=== PATIENT | female | born 1950 | race Caucasian/White ===

== ENCOUNTER → 2017-02-15 | Outpatient (CLI) | payer MEDICARE ==
--- NOTE | 2017-02-15 17:01 | BD ---
EXAMINATION TYPE: MG DEXA axial skeleton. DATE OF EXAM: 02/15/2017 1:20 PM COMPARISON: 02.24.2015 CLINICAL HISTORY: 66-year-old female Z03.89 OBS FOR METS, N95.1 POST MENOPAUSAL, C50.21 CANCER Height: 63 Weight: 144 FRAX RISK QUESTIONS: Alcohol (3 or more units per day): NO Family History (Parent hip fracture): YES Glucocorticoids (More than 3mos): NO (Ex: prednisone, prednisolone, methylprednisolone, dexamethasone, and hydrocortisone). History of Fracture in Adulthood: YES Secondary Osteoporosis: NO 1. Type 1 Diabetes: NO 2. Hyperthyroidism: NO 3. Menopause before 45: YES 4. Malnutrition: NO 5. Chronic liver disease: NO Rheumatoid Arthritis: NO Current Tobacco Use: NO RISK FACTORS HISTORY OF: Other Fractures since Age 48: ELBOW When: > 48 YRS OLD Family History of Osteoporosis: YES, MOTHER, GRANDMOTHER WITH BROKEN HIP Smoke tobacco: NO Drink Alcohol: SOCIAL Active: YES Diet low in dairy products/other sources of calcium: NO Postmenopausal woman: AT 40 YRS OLD Adrenal Insufficiency: NO MEDICATIONS: Additional Medications: HX OF RADIATION, ARIMIDEX, CALCIUM AND VIT D, LEXAPRO, Additional History: HX OF BREAST CANCER, LUMPECTOMY...2013 EXAM MEASUREMENTS: Bone mineral densitometry was performed using the [employer] System. Bone mineral density as measured about the Lumbar spine is: ----- L1-L4(G/cm2): 1.333 T Score Values are as follows: ----- L1: 1.2 ----- L2: 0.7 ----- L3: 2.0 ----- L4: 0.9 ----- L1-L4: 1.3 Bone mineral density has: Decreased -2.0% since study of: 02.24.2015 Bone mineral density about the R hip (g/cm2): 0.997 Bone mineral density about the L hip (g/cm2): 0.976 T Score values are as follows: -----R Neck: -1.1 -----L Neck: -1.0 -----R Total: -0.1 -----L Total: -0.2 Bone mineral density has: Decreased -4.3% since study of: 02.24.2015 FRAX %'s 23.3% CHANCE OF A MAJOR OSTEOPOROTIC FX AND A 2.6% CHANCE OF A HIP FX.....PROBABILITY OF FX IN 10 YRS TIME IMPRESSION: Osteopenia as indicated by T score values within the left hip. There is slightly increased risk of fracture and the patient may be considered for treatment. Re-Screen 2-5 years. NOTE: T-SCORE=SD OF THE YOUNG ADULT MEAN.
== END | disposition home or self-care (01) ==
LOC: RADBDWWP 12:48
PROVIDERS: ATTEND Internal Medicine Hematology & Oncology
DX: M85.80 Other specified disorders of bone density and structure, unspecified site (principal); C50.211 Malignant neoplasm of upper-inner quadrant of right female breast; N95.1 Menopausal and female climacteric states; Z79.890 Hormone replacement therapy
CPT/HCPCS: 77080

== ENCOUNTER → 2017-05-15 | Outpatient (CLI) | payer MEDICARE ==
--- NOTE | 2017-05-16 07:09 | MM ---
Reason for exam: additional evaluation requested from prior study. Last mammogram was performed 1 year ago. History: Patient is postmenopausal, has history of breast cancer at age 64, and is nulliparous. Radiation therapy of the right breast, 2014. Malignant MG pre op needle loc RT of the right breast, September 06, 2014. Malignant US biopsy breast VAD RT of the right breast, August 13, 2014. Took estrogen for 23 years. Took progesterone for 23 years. Taking antineoplastic for 1 year. Physical Findings: Nurse Summary: 1 x 1.5cm in the right breast at 1 o'clock (nurse ts). MG 3D Diag Mammo W/Cad TANA Bilateral CC and MLO view(s) were taken. Prior study comparison: May 14, 2016, bilateral MG 3d diag mammo w/cad TANA. November 14, 2015, right breast MG 3d diag mammo w/cad RT. The breast tissue is heterogeneously dense. This may lower the sensitivity of mammography. No suspicious abnormality. Post therapy changes medial right breast. These results were verbally communicated with the patient and result sheet given to the patient on 05/15/17. ASSESSMENT: Benign, BI-RAD 2 RECOMMENDATION: Follow-up diagnostic mammogram of both breasts in 1 year.
== END | disposition home or self-care (01) ==
LOC: RADMAMWWP 13:10
PROVIDERS: ATTEND Radiology Diagnostic Radiology
DX: C50.911 Malignant neoplasm of unspecified site of right female breast (principal)
CPT/HCPCS: G0204; G0279

== ENCOUNTER → 2017-05-28 | Outpatient (CLI) | payer MEDICARE ==
--- NOTE | 2017-05-29 08:05 | WWHP ---
[facility] - HISTORY AND PHYSICAL DATE OF SERVICE: 05/28/2017 CHIEF COMPLAINT: Patient is here for her routine gynecologic exam. HPI: This is a 67-year-old, G2, P0-0-2-0 with an LMP of 1989. The patient is without gynecologic complaints. PAST MEDICAL HISTORY: Right breast cancer in 2013, status post lumpectomy and radiation therapy. Also history of anxiety and depression and osteopenia. MEDICATIONS: 1. Prolia injections every 6 months. 2. Arimidex 1 mg daily. 3. Lexapro 10 mg daily. 4. Naproxen sodium p.r.n. for back pain. ALLERGIES: To CLINDAMYCIN which cause colitis. PAST SURGICAL HISTORY: Ectopic surgery x2, Colonoscopy 2002 and 2015, right breast lumpectomy 2013, repair of deviated septum 2009. 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 SOCIAL HISTORY: She quit smoking at age 25 and has about 1 alcoholic drink per week. She denies drug use. She has been since 1973 and her is a recovering alcoholic. 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 FAMILY HISTORY: Unchanged from the 2015 H&P. REVIEW OF SYSTEMS: Weight has been stable. She denies respiratory, cardiac or GI problems. She denies maltreatment or falling. : She denies any significant problems with urinary leakage but occasionally will have some urinary urgency where she has to get to the bathroom right away. PHYSICAL EXAM: Blood pressure 124/79, height 5 feet 4-1/2 inches, weight 147 pounds, temperature 98.1, pulse 71. This is a well-developed, well-nourished white female, who is alert and oriented x3. In no acute distress. HEENT is within normal limits. NECK: Supple without mass or thyromegaly. CHEST AND LUNGS: Clear to auscultation. HEART: Regular rate and rhythm. Breasts are without mass or discharge. There is an indentation in the area of her lumpectomy at the 2 o'clock position of the right breast. This is unchanged from her previous exam. Axillary exam is negative for adenopathy. Back negative for CVA tenderness. ABDOMEN: Soft, nontender, without palpable masses. PELVIC EXAM: External genitalia reveals itaa-wc-[id number] atrophy without lesions. Cervix and vagina reveals lmin-vb-[id number] atrophy without lesions. There is no evidence of prolapse. The uterus is mid position, nongravid size and nontender. There are no palpable adnexal masses or tenderness. Rectovaginal exam is negative for mass or tenderness and is negative for occult blood. EXTREMITIES: Nontender. IMPRESSION: 1. A 67-year-old, menopausal female, with normal gynecologic exam. 2. History of right breast cancer with no evidence of recurrence on exam. PLAN: 1. Pap smear was performed. 2. Self breast examination was discussed. 3. Mammogram was recently done on 05/15/2017 and was benign. She will repeat this in 1 year. 4. Osteoporosis prevention was discussed. She will continue to do bone density testing and treatment through Dr. Barger as she has done in the past. 5. She will return in 1 year. 6. She does get flu shots in the fall and will be doing this in the near future. MMODL / IJN: [id number] /
== END | disposition home or self-care (01) ==
LOC: WWCWWP 14:06
PROVIDERS: ATTEND Obstetrics & Gynecology
DX: Z01.419 Encounter for gynecological examination (general) (routine) without abnormal findings (principal)

== ENCOUNTER → 2018-02-19 | Outpatient (CLI) | payer MEDICARE ==
--- NOTE | 2018-02-20 11:08 | BD ---
EXAMINATION TYPE: Axial Bone Density DATE OF EXAM: 02/19/2018 COMPARISON: 02/15/2017 CLINICAL HISTORY: Osteopenia. Breast cancer. Postmenopausal female. Height: 63 IN Weight: 143 LBS FRAX RISK QUESTIONS: History of Fracture in Adulthood: YES LT ELBOW AGE 53 Secondary Osteoporosis: 3. Menopause before 45: YES AGE 40 RISK FACTORS HISTORY OF: Family History of Osteoporosis: YES MOTHER Active: YES Postmenopausal woman: AGE 40 Take estrogen and/or progesterone medications: NOT NOW How long: AGE 40 - 50 Adrenal Insufficiency: MEDICATIONS: Osteoporosis Medications: Which medication: Prolia How Lon YEAR Additional Medications: PROLIA, ARIMIDEX, LEXAPRO, CALCIUM, VIT D Additional History: BREAST CANCER WITH RADIATION EXAM MEASUREMENTS: Bone mineral densitometry was performed using the [employer] System. Bone mineral density as measured about the Lumbar spine is: ----- L1-L4(G/cm2): 1.475 T Score Values are as follows: ----- L2: 2.2 ----- L3: 3.1 ----- L4: 1.8 ----- L1-L4: 2.5 Bone mineral density has: Increased 9.8% since study of: 02/15/2017 Bone mineral density about the R hip (g/cm2): 0.900 Bone mineral density about the L hip (g/cm2): 0.883 T Score values are as follows: -----R Neck: -1.0 -----L Neck: -1.1 -----R Total: 0.1 -----L Total: 0.2 Bone mineral density has: Increased 4.1% since study of: 02/15/2017 IMPRESSION: Osteopenia (T Score between -2.5 and -1) with regards to the left femur. There is slightly increased risk of fracture and the patient may be considered for treatment. Re-Screen 2-5 years. NOTE: T-SCORE=SD OF THE YOUNG ADULT MEAN.
== END | disposition home or self-care (01) ==
LOC: RADBDWWP 15:03
PROVIDERS: ATTEND Internal Medicine Hematology & Oncology
DX: M85.852 Other specified disorders of bone density and structure, left thigh (principal); C50.211 Malignant neoplasm of upper-inner quadrant of right female breast
CPT/HCPCS: 77080

== ENCOUNTER → 2018-05-19 | Outpatient (CLI) | payer MEDICARE ==
--- NOTE | 2018-05-19 14:22 | MM ---
Reason for exam: additional evaluation requested from prior study. Last mammogram was performed 1 year ago. History: Patient is postmenopausal, has history of breast cancer at age 64, and is nulliparous. Radiation therapy of the right breast, 2015. Malignant MG pre op needle loc RT of the right breast, September 06, 2014. Malignant US biopsy breast VAD RT of the right breast, August 13, 2014. Took estrogen for 23 years. Took progesterone for 23 years. Taking antineoplastic for 1 year. Physical Findings: Nurse did not find any significant physical abnormalities on exam. MG 3D Diag Mammo W/Cad TANA Bilateral CC and MLO view(s) were taken. Technologist: Isatu Ulloa, RT (R)(M) Prior study comparison: May 15, 2017, bilateral MG 3d diag mammo w/cad TANA. May 14, 2016, bilateral MG 3d diag mammo w/cad TANA. The breast tissue is heterogeneously dense. This may lower the sensitivity of mammography. Post operative changes on lumpectomy are stable in the right breast. No significant new findings when compared with previous films. These results were verbally communicated with the patient and result sheet given to the patient on 05/19/18. ASSESSMENT: Benign, BI-RAD 2 RECOMMENDATION: Follow-up diagnostic mammogram of both breasts in 1 year.
== END | disposition home or self-care (01) ==
LOC: RADMAMWWP 12:41
PROVIDERS: ATTEND Internal Medicine Hematology & Oncology
DX: Z08 Encounter for follow-up examination after completed treatment for malignant neoplasm (principal); Z85.3 Personal history of malignant neoplasm of breast
CPT/HCPCS: 77066; G0279; 77062

== ENCOUNTER → 2019-05-21 | Outpatient (CLI) | payer MEDICARE ==
--- NOTE | 2019-05-26 09:46 | MM ---
Reason for exam: screening (asymptomatic). Last mammogram was performed 1 year ago. History: Patient is postmenopausal, has history of breast cancer at age 64, and is nulliparous. Radiation therapy of the right breast, 2015. Malignant MG pre op needle loc RT of the right breast, September 06, 2014. Malignant US biopsy breast VAD RT of the right breast, August 13, 2014. Took estrogen for 23 years. Took progesterone for 23 years. Taking antineoplastic for 1 year. Physical Findings: A clinical breast exam by your physician is recommended on an annual basis and results should be correlated with mammographic findings. MG 3D Screening Mammo W/Cad Bilateral CC and MLO view(s) were taken. Prior study comparison: May 19, 2018, bilateral MG 3d diag mammo w/cad TANA. May 15, 2017, bilateral MG 3d diag mammo w/cad ATNA. Post surgical and post therapy change right breast. No significant changes when compared with prior studies. ASSESSMENT: Benign, BI-RAD 2 RECOMMENDATION: Routine screening mammogram of both breasts in 1 year.
== END | disposition home or self-care (01) ==
LOC: RADMAMWWP 14:21
PROVIDERS: ATTEND Internal Medicine Geriatric Medicine
DX: C50.911 Malignant neoplasm of unspecified site of right female breast (principal)
CPT/HCPCS: 77063; 77067

== ENCOUNTER → 2019-11-12 | Outpatient (CLI) | payer MEDICARE ==
--- NOTE | 2019-11-12 09:40 | US ---
EXAMINATION TYPE: US abdomen complete DATE OF EXAM: 11/12/2019 COMPARISON: NONE CLINICAL HISTORY: 69-year-old female R10.84 Abd pain. With heartburn recently TECHNIQUE: Multiple sonographic images of the abdomen are obtained. FINDINGS: EXAM MEASUREMENTS: Liver Length: 13.0 cm Gallbladder Wall: 0.3 cm CBD: 0.8 cm Spleen: 7.1 cm Right Kidney: 9.1 x 4.1 x 4.5 cm Left Kidney: 7.9 x 3.7 x 3.9 cm Pancreas: wnl Liver: wnl Gallbladder: wnl Evidence for sonographic Grigsby's sign: no CBD: Mildly dilated. Spleen: limited views due to high positioning within rib cage despite rolling the patient RLD Right Kidney: wnl Left Kidney: limited views due to location, the measurement is estimated. No hydronephrosis. Upper IVC: wnl Abd Aorta: Mid abdominal aorta borderline ectatic at 2.5 cm. IMPRESSION: 1. Bile duct mildly dilated at 8 mm. This may be chronic given patient's age. Recommend correlation f or normal alkaline phosphatase and bilirubin levels. 2. Borderline ectatic 2.5 cm mid abdominal aorta. 3. Limited views of the spleen and left kidney due to high position behind the ribs. No obvious abnor mality.
== END | disposition home or self-care (01) ==
LOC: RADUSWWP 08:22
PROVIDERS: ATTEND Internal Medicine Geriatric Medicine
DX: I77.811 Abdominal aortic ectasia (principal); K83.8 Other specified diseases of biliary tract
CPT/HCPCS: 76700

== ENCOUNTER → 2020-07-21 | Outpatient (CLI) | payer MEDICARE ==
--- NOTE | 2020-07-21 13:50 | BD ---
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 Menopause before 45: YES RISK FACTORS HISTORY OF: YES, ELBOW, ADULT Family History of Osteoporosis: YES, MOTHER WITH HIP FX Active: YES Diet low in dairy products/other sources of calcium: YES A BIT Postmenopausal woman: YES AT AGE 40 Lost more than 2 inches in height since high school: YES Hyperparathyroidism: NO Adrenal Insufficiency: NO MEDICATIONS: Prednisone or other steroids: ON AND OFF WITH PREDNISONE WITH ILLNESS Osteoporosis Medications: PROLIA IN THE PAST LAST TAKEN, February Additional Medications: LEXAPRO, HX OF RADIATION, RT BREAST CANCER, ARIMIDEX LAST TAKEN NOVEMBER 2019, R EFLUX MEDS, CALCIUM, AND VIT D Additional History: REFLUX, BREAST CANCER, EXAM MEASUREMENTS: Bone mineral densitometry was performed using the [employer] System. Bone mineral density as measured about the Lumbar spine is: ----- L1-L4(G/cm2): 1.540 T Score Values are as follows: ----- L1: 2.3 ----- L2: 1.8 ----- L3: 4.0 ----- L4: 3.3 ----- L1-L4: 3.0 Bone mineral density has: Increased 6.6% since study of: 02.12.2018 Bone mineral density about the R hip (g/cm2): 1.010 Bone mineral density about the L hip (g/cm2): 1.017 T Score values are as follows: -----R Neck: -1.0 -----L Neck: -1.1 -----R Total: 0.0 -----L Total: 0.1 Bone mineral density has: Decreased -1.3% since study of: 02.12.2018 FRAXs%: THERE IS A 22.3% CHANCE FOR A MAJOR OSTEOPOROTIC FX AND A 5.4% FOR HIP......PROBABILITY FOR FX IN 10 YRS TIME IMPRESSION: Osteopenia (T Score between -2.5 and -1) femoral neck level left hip remains present. There remains slightly increased risk of fracture and the patient may be considered for treatment. Re-Screen 2-5 years. NOTE: T-SCORE=SD OF THE YOUNG ADULT MEAN.
--- NOTE | 2020-07-21 14:08 | MM ---
Reason for exam: additional evaluation requested from prior study. Last mammogram was performed 1 year and 2 months ago. History: Patient is postmenopausal, has history of breast cancer at age 64, and is nulliparous. Radiation therapy of the right breast, 2014. Malignant MG pre op needle loc RT of the right breast, September 06, 2014. Malignant US biopsy breast VAD RT of the right breast, August 13, 2014. Lumpectomy of the right breast, 2013. Took estrogen for 24 years. Took progesterone for 24 years. Taking antineoplastic for 1 year. Physical Findings: Nurse did not find any significant physical abnormalities on exam. MG 3D Diag Mammo W/Cad TANA Bilateral CC and MLO view(s) were taken. Prior study comparison: May 21, 2019, bilateral MG 3d screening mammo w/cad. May 19, 2018, bilateral MG 3d diag mammo w/cad TANA. The breast tissue is heterogeneously dense. This may lower the sensitivity of mammography. Post surgical and post therapy change right breast. Large underlying post surgical scar and or seroma. No significant new findings when compared with previous films. These results were verbally communicated with the patient and result sheet given to the patient on 07/21/20. ASSESSMENT: Benign, BI-RAD 2 RECOMMENDATION: Follow-up diagnostic mammogram of both breasts in 1 year.
== END | disposition home or self-care (01) ==
LOC: RADBDWWP 12:17
PROVIDERS: ATTEND Internal Medicine Hematology & Oncology
DX: M85.80 Other specified disorders of bone density and structure, unspecified site (principal); M89.9 Disorder of bone, unspecified; Z85.3 Personal history of malignant neoplasm of breast
CPT/HCPCS: 77080; 77066; G0279; 77062

== ENCOUNTER → 2021-07-24 | Outpatient (CLI) | payer MEDICARE ==
--- NOTE | 2021-07-24 11:35 | MM ---
Reason for exam: additional evaluation requested from prior study. Last mammogram was performed 1 year ago. History: Patient is postmenopausal, has history of breast cancer at age 64, and is nulliparous. Radiation therapy of the right breast, 2014. Malignant MG pre op needle loc RT of the right breast, September 06, 2014. Malignant US biopsy breast VAD RT of the right breast, August 13, 2014. Lumpectomy of the right breast, 2013. Took estrogen for 24 years. Took progesterone for 24 years. Taking antineoplastic for 1 year. Physical Findings: Nurse did not find any significant physical abnormalities on exam. MG 3D Diag Mammo W/Cad TANA Bilateral CC and MLO view(s) were taken. Prior study comparison: July 21, 2020, bilateral MG 3d diag mammo w/cad TANA. May 21, 2019, bilateral MG 3d screening mammo w/cad. May 19, 2018, bilateral MG 3d diag mammo w/cad TANA. May 15, 2017, bilateral MG 3d diag mammo w/cad TANA. The breast tissue is heterogeneously dense. This may lower the sensitivity of mammography. No significant new findings when compared with previous films. These results were verbally communicated with the patient and result sheet given to the patient on 07/24/21. ASSESSMENT: Benign, BI-RAD 2 RECOMMENDATION: Routine screening mammogram of both breasts in 1 year.
== END | disposition home or self-care (01) ==
LOC: RADMAMWWP 10:20
PROVIDERS: ATTEND Internal Medicine Hematology & Oncology
DX: Z08 Encounter for follow-up examination after completed treatment for malignant neoplasm (principal); Z85.3 Personal history of malignant neoplasm of breast
CPT/HCPCS: 77066; G0279; 77062

== ENCOUNTER → 2022-08-07 | Outpatient (CLI) | payer MEDICARE ==
--- NOTE | 2022-08-08 08:46 | MM ---
Reason for Exam: Screening (asymptomatic). Last screening mammogram was performed 12 month(s) ago. Patient History: Menarche at age 10. Patient has no children. Postmenopausal. Breast cancer, right, age 64. Estrogen for 24 years until age 64. Progesterone for 24 years until age 64. 2013, Lumpectomy on the Right side. 09/06/2014, Malignant Core Biopsy on the right side. 08/13/2014, Malignant Core Biopsy on the right side. 2014, Radiation Therapy on the right side. Prior Study Comparison: 11/13/1994 Screening Mammogram, Unknown. 05/09/2015 Bilateral Diagnostic Mammogram, [facility]. 05/14/2016 Bilateral Diagnostic Mammogram, [facility]. 05/15/2017 Bilateral Diagnostic Mammogram, [facility]. 05/19/2018 Bilateral Diagnostic Mammogram, [facility]. 05/21/2019 Bilateral Screening Mammogram, [facility]. 07/21/2020 Bilateral Diagnostic Mammogram, [facility]. 07/24/2021 Bilateral Diagnostic Mammogram, [facility]. Tissue Density: The breast tissue is heterogeneously dense. This may lower the sensitivity of mammography. Findings: Analyzed By CAD. Post surgical changes of the right breast. There is no suspicious group of microcalcifications or new suspicious mass in either breast. Overall Assessment: Benign, BI-RAD 2 Management: Screening Mammogram of both breasts in 1 year. A clinical breast exam by your physician is recommended on an annual basis and results should be correlated with mammographic findings. [facility] will attempt to contact patient to return for supplemental views and ultrasound if indicated. Electronically signed and approved by: Alirio Ramos DO
== END | disposition home or self-care (01) ==
LOC: RADMAMWWP 15:12
PROVIDERS: ATTEND Internal Medicine Hematology & Oncology
DX: Z12.31 Encounter for screening mammogram for malignant neoplasm of breast (principal); Z78.0 Asymptomatic menopausal state
CPT/HCPCS: 77063; 77067

== ENCOUNTER → 2022-10-04 | Outpatient (CLI) | payer MEDICARE ==
--- NOTE | 2022-10-04 15:39 | XR ---
EXAMINATION TYPE: XR chest 2V DATE OF EXAM: 10/04/2022 COMPARISON: NONE TECHNIQUE: PA and lateral views submitted. HISTORY: None FINDINGS: The lungs are clear and there is no pneumothorax, pleural effusion, or focal pneumonia. Heart size normal and no overt failure. Osseous structures demonstrate hypertrophic and degenerative changes of the spine. Postsurgical change overlying the right breast. Hypertrophic and degenerative changes of t he spine. IMPRESSION: 1. No acute process.
== END | disposition home or self-care (01) ==
LOC: RADXRMAIN 15:19
PROVIDERS: ATTEND Internal Medicine Geriatric Medicine
DX: R05.3 Chronic cough (principal)
CPT/HCPCS: 71046

== ENCOUNTER → 2023-08-08 | Outpatient (CLI) | payer MEDICARE ==
--- NOTE | 2023-08-09 09:43 | MM ---
Reason for Exam: Screening (asymptomatic). Last screening mammogram was performed 12 month(s) ago. Patient History: Menarche at age 10. Patient has no children. Postmenopausal. Breast cancer, right, age 64. Previous chest radiation therapy at age 64. Estrogen for 24 years until age 64. Progesterone for 24 years until age 64. Currently using Estrogen and Progesterone, starting at age 68. 2013, Lumpectomy on the Right side. 09/06/2014, Malignant Core Biopsy on the right side. 08/13/2014, Malignant Core Biopsy on the right side. 2014, Radiation Therapy on the right side. Prior Study Comparison: 05/15/2017 Bilateral Diagnostic Mammogram, [facility]. 05/19/2018 Bilateral Diagnostic Mammogram, [facility]. 05/21/2019 Bilateral Screening Mammogram, [facility]. 07/21/2020 Bilateral Diagnostic Mammogram, [facility]. 07/24/2021 Bilateral Diagnostic Mammogram, [facility]. 08/07/2022 Bilateral MG 3D screening mammo w/cad, [facility]. Tissue Density: The breast tissue is heterogeneously dense. This may lower the sensitivity of mammography. Findings: Analyzed By CAD. Surgical clips and postprocedural changes right breast findings are not significantly changed. There is no suspicious group of microcalcifications or new suspicious mass. Overall Assessment: Benign, BI-RAD 2 Management: Screening Mammogram of both breasts in [address] [facility] will attempt to contact patient to return for supplemental views and ultrasound if indicated. Patient should continue monthly self-breast exams. A clinical breast exam by your physician is recommended on an annual basis. This exam should not preclude additional follow-up of suspicious palpable abnormalities. Note on Mayelin scores and lifetime risk: 1. A Mayelin score greater than 3% is considered moderate risk. If this is the case, consider specialist referral to assess eligibility for a risk reducing agent. 2. If overall lifetime risk for the development of breast cancer is 20% or higher, the patient may qualify for future screening with alternating mammogram and breast MRI. Electronically signed and approved by: Alirio Ramos DO
--- NOTE | 2023-08-12 12:22 | BD ---
EXAMINATION TYPE: Axial Bone Density DATE OF EXAM: 08/08/2023 CLINICAL HISTORY: 73 years old Female. ICD-10 CODE: M46034, M859, [id number], F329 SCREENING Height: 61.5in Weight: 140lb FRAX RISK QUESTIONS: Family History (Parent hip fracture): yes History of Fracture in Adulthood: yes Secondary Osteoporosis: 3. Menopause before 45: yes RISK FACTORS HISTORY OF: Family History of Osteoporosis: yes Active: yes Postmenopausal woman: yes Take estrogen and/or progesterone medications: HRT, none current How long: about 10 years Lost more than 2 inches in height since high school: yes MEDICATIONS: Osteoporosis Medications: Which medication: Prolia, none current How Long: Additional Medications: calcium with vitamin d Additional History: breast cancer EXAM MEASUREMENTS: Bone mineral densitometry was performed using the [employer]. Bone mineral density as measured about the Lumbar spine is: ----- L1-L4(G/cm2): 1.488 T Score Values are as follows: ----- L1: 3.4 ----- L2: 1.4 ----- L3: 2.9 ----- L4: 2.4 ----- L1-L4: 2.6 Z Score Values are as follows: ----- L1: 5.2 ----- L2: 3.2 ----- L3: 4.7 ----- L4: 4.2 ----- L1-L4: 4.4 Bone mineral density has: Decreased -3.4% since study of: 07-21-2020 Bone mineral density about the R hip (g/cm2): 1.013 Bone mineral density about the L hip (g/cm2): 0.999 T Score values are as follows: -----R Neck: -1.2 -----L Neck: -1.1 -----R Total: 0.0 -----L Total: -0.1 Z Score values are as follows: -----R Neck: 0.8 -----L Neck: 0.8 -----R Total: 1.8 -----L Total: 1.7 Bone mineral density has: Decreased -0.8% since study of: 07-21-2020 FRAX%s: The graph provided illustrates a 24.2% chance for a major osteoporotic fx and a 10.5% chance for the hips probability for fx in 10 years time. IMPRESSION: Osteopenia (T Score between -2.5 and -1). There is slightly increased risk of fracture and the patient may be considered for treatment. Re-Screen 2-5 years. NOTE: T-SCORE=SD OF THE YOUNG ADULT MEAN.
== END | disposition home or self-care (01) ==
LOC: RADMAMWWP 10:22
PROVIDERS: ATTEND Internal Medicine Hematology & Oncology
DX: Z12.31 Encounter for screening mammogram for malignant neoplasm of breast (principal); C50.211 Malignant neoplasm of upper-inner quadrant of right female breast; M85.89 Other specified disorders of bone density and structure, multiple sites; Z87.39 Personal history of other diseases of the musculoskeletal system and connective tissue; F32.9 Major depressive disorder, single episode, unspecified; Z78.0 Asymptomatic menopausal state; Z85.3 Personal history of malignant neoplasm of breast
CPT/HCPCS: 77063; 77067; 77080

== ENCOUNTER → 2024-08-10 | Outpatient (CLI) | payer MEDICARE ==
--- NOTE | 2024-08-11 09:57 | MM ---
Reason for Exam: Screening (asymptomatic). Last screening mammogram was performed 12 month(s) ago. Patient History: Menarche at age 10. Patient has no children. Postmenopausal. Breast cancer, right, age 64. Previous chest radiation therapy at age 64. Estrogen for 24 years until age 64. Progesterone for 24 years until age 64. Currently using Estrogen and Progesterone, starting at age 68. 2013, Lumpectomy on the Right side. 09/06/2014, Malignant Core Biopsy on the right side. 08/13/2014, Malignant Core Biopsy on the right side. 2014, Radiation Therapy on the right side. Prior Study Comparison: 07/24/2021 Bilateral Diagnostic Mammogram, [facility]. 08/07/2022 Bilateral MG 3D screening mammo w/cad, [facility]. 08/08/2023 Bilateral MG 3D screening mammo w/cad, [facility]. Tissue Density: The breasts are heterogeneously dense, which may obscure small masses. Findings: Analyzed By CAD. There is no suspicious group of microcalcifications. Stable postoperative lumpectomy changes right breast. Dystrophic calcifications seen. Overall Assessment: Benign, BI-RAD 2 Management: Screening Mammogram of both breasts in 1 year. . Patient should continue monthly self-breast exams. A clinical breast exam by your physician is recommended on an annual basis. This exam should not preclude additional follow-up of suspicious palpable abnormalities. Note on Mayelin scores and lifetime risk: 1. A Mayelin score greater than 3% is considered moderate risk. If this is the case, consider specialist referral to assess eligibility for a risk reducing agent. 2. If overall lifetime risk for the development of breast cancer is 20% or higher, the patient may qualify for future screening with alternating mammogram and breast MRI. [facility], , 08/11/2024 9:53 AM. Electronically signed and approved by: Yanick Esquivel M.D. Radiologis
== END | disposition home or self-care (01) ==
LOC: RADMAMWWP 11:17
PROVIDERS: ATTEND Internal Medicine Hematology & Oncology
DX: Z12.31 Encounter for screening mammogram for malignant neoplasm of breast (principal); C50.211 Malignant neoplasm of upper-inner quadrant of right female breast; M85.9 Disorder of bone density and structure, unspecified; F32.9 Major depressive disorder, single episode, unspecified; Z87.39 Personal history of other diseases of the musculoskeletal system and connective tissue; Z78.0 Asymptomatic menopausal state
CPT/HCPCS: 77063; 77067

== ENCOUNTER → 2024-08-13 | Outpatient (CLI) | payer MEDICARE ==
--- NOTE | 2024-08-13 16:14 | US ---
EXAMINATION TYPE: US venous doppler duplex LE LT DATE OF EXAM: 08/13/2024 3:55 PM COMPARISON: NONE CLINICAL INDICATION: Female, 74 years old with history of I80.9 PHLEBITIS; left ankle swelling. , TECHNIQUE: The lower extremity deep venous system is examined utilizing real time linear array sonog santiago with graded compression, color doppler sonography, and spectral doppler. SIDE PERFORMED: Left FINDINGS: VESSELS IMAGED: Common Femoral Vein Deep Femoral Vein Greater Saphenous Vein * Femoral Vein Popliteal Vein Small Saphenous Vein * Proximal Calf Veins (* superficial vessels) Left Leg: Negative for DVT, Color Doppler imaging shows patency of the vessels. Spectral waveforms a re within normal limits. IMPRESSION: No ultrasound evidence for deep venous thrombosis. [facility], Workstation: [id number], 08/13/2024 4:12 PM
== END | disposition home or self-care (01) ==
LOC: RADUSWWP 15:39
PROVIDERS: ATTEND Orthopaedic Surgery
DX: I80.9 Phlebitis and thrombophlebitis of unspecified site (principal)

== ENCOUNTER → 2024-10-01 | Outpatient (CLI) | payer MEDICARE ==
--- NOTE | 2024-10-01 15:58 | XR ---
EXAMINATION TYPE: XR foot complete LT DATE OF EXAM: 10/01/2024 3:51 PM COMPARISON: None. CLINICAL INDICATION: Female, 74 years old with history of M79.672 L FOOT BIG TOE, pain TECHNIQUE: Frontal, lateral, and oblique images of the left foot are obtained. FINDINGS: There is acute slightly displaced intra-articular fracture through the medial base of the first proximal phalanx. Osseous structures are demineralized. Tiny inferior calcaneal spur is noted. The joint spaces in the left foot appear within normal limits. An accessory ossicle near lateral base of the cuboid is present. The overlying soft tissue appears unremarkable. IMPRESSION: There is an acute minimally displaced oblique intra-articular fracture through the media l base of the first proximal phalanx. [facility], , 10/01/2024 3:56 PM
== END | disposition home or self-care (01) ==
LOC: RADXRMAIN 15:20
PROVIDERS: ATTEND Internal Medicine Geriatric Medicine
DX: S92.812A Other fracture of left foot, initial encounter for closed fracture (principal); M77.32 Calcaneal spur, left foot; X58.XXXA Exposure to other specified factors, initial encounter

== ENCOUNTER → 2025-01-22 | Outpatient (CLI) | payer MEDICARE ==
--- NOTE | 2025-01-23 07:33 | XR ---
EXAMINATION TYPE: XR foot complete LT DATE OF EXAM: 01/22/2025 CLINICAL INDICATION: Female, 74 years old with history of M79.672 PAIN IN LEFT FOOT, pain TECHNIQUE: Frontal, lateral, and oblique images of the left foot are obtained. COMPARISON: Left foot x-ray October 01, 2024 FINDINGS: There is healing fracture at the medial base of the first proximal phalanx. Osseous structu res remain demineralized. There is no new acute displaced fracture evident in the left foot. The daniella nt spaces in the left foot appear within normal limits. Small inferior calcaneal spur. Flexion in the toes is redemonstrated. The overlying soft tissue appears unremarkable. IMPRESSION: There is no new acute fracture or dislocation in the left foot. [facility], , 01/23/2025 7:30 AM
== END | disposition home or self-care (01) ==
LOC: RADXRMAIN 15:52
PROVIDERS: ATTEND Internal Medicine Geriatric Medicine
DX: S62.617D Displaced fracture of proximal phalanx of left little finger, subsequent encounter for fracture with routine healing (principal)